=== PATIENT | male | born 1945 | race Caucasian/White ===

== ENCOUNTER → 2017-08-24 | Outpatient (CLI) | payer MEDICARE ==
[~2017-08-24] MED LIST: ASPI-496 PO; ATOR10TA9 PO; CHOL10003 PO; DAPA5TAB PO; LINA5TAB PO; LISI-467 PO; METF-365 PO; MULT-717 PO; OMEG1CAP24 PO
== END ==
LOC: CFH 09:31
PROVIDERS: ATTEND Nurse Practitioner
DX: Z12.2 Encounter for screening for malignant neoplasm of respiratory organs (principal); F17.200 Nicotine dependence, unspecified, uncomplicated; Z87.891 Personal history of nicotine dependence
CPT/HCPCS: G0297

== ENCOUNTER 2019-12-08 20:29 | Emergency (ER) | payer MEDICARE ==
[~2019-12-08] VITALS: Ht 175.3 cm; Wt 104.4 kg
--- NOTE | 2019-12-08 21:15 | NUR ---
SUPPLEMENTAL O2 PLACED VIA NASAL CANNULA @ 2L. O2 SAT 98%
--- NOTE | 2019-12-08 21:19 | NUR ---
74 YEAR OLD MALE TO ED FOR SOB X 1 MONTH. HE DENIES +COVID TEST, FEVER, CHILLS, BODY ACHES, OR SORE THROAT. HE ENDORSES PRODUCTIVE COUGH W CLEAR SPUTUM AND LEG SWELLING. EXP WHEEZES NOTED W AUSCULTATION.
--- NOTE | 2019-12-08 21:42 | NUR ---
[facility] [phone]
[2019-12-08 21:50] LABS: BASOPHILS # (AUTO) 0.06 x10^3/uL (0-0.1); BASOPHILS % (AUTO) 1 % (0-1); EOSINOPHILS # (AUTO) 0.18 x10^3/uL (0-0.4); EOSINOPHILS % (AUTO) 2 % (1-7); LYMPHOCYTES % (AUTO) 23 % (22-44); MD NO; MEAN CORPUSCULAR HEMOGLOBIN 33.2 pg (27.5-34.5); MEAN CORPUSCULAR HGB CONC 32.8 g/dL (33.2-36.2); MEAN PLATELET VOLUME 8.7 fL (7.4-10.4); MONOCYTES # (AUTO) 1.11 x10^3/uL (0.2-0.8); MONOCYTES % (AUTO) 11 % (2-9); NEUTROPHILS # (AUTO) 6.44 x10^3/uL (1.8-6.8); NEUTROPHILS % (AUTO) 64 % (42-75); PLATELET COUNT 225 x10^3/uL (130-400); RED BLOOD COUNT 5.08 x10^6/uL (4.38-5.82); RED CELL DISTRIBUTION WIDTH 13.3 % (9.4-14.8)
[2019-12-08 21:57] LABS: ALANINE AMINOTRANSFERASE 50 U/L (12-78); ALBUMIN 3.6 g/dL (3.4-5.0); ANION GAP 7 mmol/L (5-15); CALCIUM 9.1 mg/dL (8.5-10.1); CHLORIDE 107 mmol/L (98-107); CREATININE 0.91 mg/dL (0.7-1.3)
[2019-12-08 22:01] LABS: ALKALINE PHOSPHATASE 91 U/L (45-117); BILIRUBIN,TOTAL 0.6 mg/dL (0.2-1.0); TOTAL PROTEIN 7.5 g/dL (6.4-8.2); TROPONIN I < 0.015 ng/mL (0.000-0.045)
[2019-12-08] MEDS ORDERED: DOXYCYCLINE 100MG TABLET PO ONE (22:30)
[2019-12-08] MEDS ORDERED: DOXYCYCLINE 100MG TABLET ONE (22:36)
[2019-12-08 22:44] VITALS: BP 118/56
--- NOTE | 2019-12-08 22:54 | NUR ---
PATIENT IN NO APPARENT DISTRESS. RESTING COMFORTABLY. VSS.
== END 2019-12-08 23:34 | disposition home or self-care (01) ==
LOC: ED 23:20
DX: J18.9 Pneumonia, unspecified organism (principal); Z20.828 Contact with and (suspected) exposure to other viral communicable diseases; R60.9 Edema, unspecified; I10 Essential (primary) hypertension; E11.9 Type 2 diabetes mellitus without complications; E78.00 Pure hypercholesterolemia, unspecified; Z87.891 Personal history of nicotine dependence; Z85.46 Personal history of malignant neoplasm of prostate
CPT/HCPCS: 36415; 71045; 80053; 83880; 84484; 85025; 87635; 93005; 99285

== ENCOUNTER → 2020-10-24 | Outpatient (CLI) | payer MEDICARE ==
[~2020-10-24] MED LIST changes: +OMNIPAQUE 350 MG/ML, 150 ML BOTTLE ONE
== END | disposition home or self-care (01) ==
LOC: CFH 12:55
PROVIDERS: ATTEND Physician Assistant
DX: R31.0 Gross hematuria (principal); M51.37 Other intervertebral disc degeneration, lumbosacral region
CPT/HCPCS: 74178; Q9967

== ENCOUNTER → 2020-11-03 | Outpatient (CLI) | payer MEDICARE ==
[~2020-11-03] MED LIST changes: +IPRA4AER INH; +LATA7.5D EACHEYE; +LISI-170 PO; -OMNIPAQUE 350 MG/ML, 150 ML BOTTLE ONE; +Oxygen INH
[2020-11-03 10:14] LABS: BASOPHILS % (AUTO) 0 % (0-1); EOSINOPHILS % (AUTO) 2 % (1-7); LYMPHOCYTES % (AUTO) 28 % (22-44); MEAN CORPUSCULAR HEMOGLOBIN 34.5 pg (27.5-34.5); MEAN CORPUSCULAR HGB CONC 34.6 g/dL (33.2-36.2); MEAN PLATELET VOLUME 8.9 fL (7.4-10.4); MONOCYTES % (AUTO) 12 % (2-9); NEUTROPHILS % (AUTO) 58 % (42-75); PLATELET COUNT 240 x10^3/uL (130-400); RED BLOOD COUNT 4.92 x10^6/uL (4.38-5.82); RED CELL DISTRIBUTION WIDTH 12.7 % (9.4-14.8)
[2020-11-03 10:18] LABS: MICROSCOPIC NOT IND
[2020-11-03 10:24] LABS: ALANINE AMINOTRANSFERASE 48 U/L (12-78); ALBUMIN 3.6 g/dL (3.4-5.0); ANION GAP 4 mmol/L (5-15); CHLORIDE 105 mmol/L (98-107); CREATININE 0.91 mg/dL (0.7-1.3); INTERNATIONAL NORMALIZED RATIO 1.02 (0.93-1.1); PROTHROMBIN TIME 10.9 Seconds (9.6-11.5)
[2020-11-03 10:26] LABS: ALKALINE PHOSPHATASE 81 U/L (45-117); BILIRUBIN,TOTAL 0.5 mg/dL (0.2-1.0); TOTAL PROTEIN 7.5 g/dL (6.4-8.2)
== END | disposition home or self-care (01) ==
LOC: STAR 09:22
PROVIDERS: ATTEND Urology
DX: Z01.818 Encounter for other preprocedural examination (principal); N32.89 Other specified disorders of bladder; I44.0 Atrioventricular block, first degree
CPT/HCPCS: 36415; 80053; 81003; 85025; 85610; 85730; 87086; 93005

== ENCOUNTER 2020-11-25 05:42 | Day surgery (SDC) | payer MEDICARE ==
[~2020-11-25] VITALS: Ht 175.3 cm; Wt 102.0 kg
[2020-11-25 06:43] VITALS: BP 164/78
[2020-11-25] MEDS ORDERED: MIDAZOLAM 1 MG/ML, 2ML ONE (06:44)
[2020-11-25] MEDS ORDERED: GLYCOPYRROLATE 0.2MG/1ML, 5ML ONE (06:45)
[2020-11-25] MEDS ORDERED: ROCURONIUM 10MG/ML,5ML ONE (06:45)
[2020-11-25] MEDS ORDERED: PROPOFOL 10 MG/ML, 20ML ONE (06:45)
[2020-11-25] MEDS ORDERED: DEXAMETHASONE 4 MG/ML, 1ML ONE (06:45)
[2020-11-25] MEDS ORDERED: NEOSTIGMINE 1 MG/ML, 10ML ONE (06:45)
[2020-11-25] MEDS ORDERED: ONDANSETRON 2MG/ML, 2ML ONE (06:45)
[2020-11-25] MEDS ORDERED: FENTANYL PF 250 MCG/5ML ONE (06:45)
[2020-11-25] MEDS ORDERED: CEFAZOLIN 1,000 MG ONE (06:45)
[2020-11-25] MEDS ORDERED: PHENYLEPHRINE 10 MG/ML ONE (06:54)
[2020-11-25] MEDS ORDERED: morphine SULFATE 10 MG/ML, 1ML IVPush PRN (07:00)
[2020-11-25] MEDS ORDERED: LACTATED RINGERS 1,000 ML IV SCH (07:00)
[2020-11-25] MEDS ORDERED: HYDROmorphone 1 MG/ML, 1ML INJ IVPush PRN (07:00)
[2020-11-25] MEDS ORDERED: CHLORHEXIDINE 15 ML UDC PO ONE (07:00)
[2020-11-25] MEDS ORDERED: ALBUTEROL/IPRATROPIUM 2.5MG/0.5MG, 3 ML NPPB PRN (07:00)
[2020-11-25] MEDS ORDERED: MEPERIDINE/PF 25MG/0.5ML IVPush PRN (07:00)
[2020-11-25] MEDS ORDERED: OXYcodone 5 MG/5 ML ORAL.SOL UDC PO PRN (07:00)
[2020-11-25] MEDS ORDERED: ONDANSETRON 2MG/ML, 2ML IVPush PRN (07:00)
[2020-11-25] MEDS ORDERED: FENTANYL PF 100 MCG/2ML IV PRN (07:00)
[2020-11-25] MEDS ORDERED: LABETALOL 5MG/ML, 20ML IV PRN (07:00)
[2020-11-25] MEDS ORDERED: ACETAMINOPHEN 325 MG TABLET PO PRN (07:00)
[2020-11-25] MEDS ORDERED: hydrALAzine 20 MG/ML, 1ML IV PRN (07:00)
[2020-11-25] MEDS ORDERED: ALBUTEROL SULFATE 2.5 MG/3 ML NPPB PRN (07:00)
[2020-11-25] MEDS ORDERED: ALBUTEROL HFA 90 MCG/SPRAY ONE (07:23)
[2020-11-25] MEDS ORDERED: GEMCITABINE HCL 1,000 MG in SODIUM CHLORIDE 0.9% 23.7 ML IS ONE (08:00)
[2020-11-25] MEDS ORDERED: ALBUTEROL/IPRATROPIUM 2.5MG/0.5MG, 3 ML ONE (08:39)
[2020-11-25] MEDS ORDERED: LORazepam 2 MG/ML, 1ML ONE (09:02)
[2020-11-25] MEDS: LORazepam 2 MG/ML, 1ML IVPush PRN (09:15)
[2020-11-25] MEDS ORDERED: LABETALOL 5MG/ML, 20ML ONE (09:17)
[2020-11-25] MEDS ORDERED: ALBUTEROL SULFATE 2.5 MG/3 ML NEB ONE (11:00)
== END 2020-11-25 12:30 | disposition home or self-care (01) ==
LOC: OUT 05:42
PROVIDERS: ATTEND Urology
DX: C67.9 Malignant neoplasm of bladder, unspecified (principal); J44.9 Chronic obstructive pulmonary disease, unspecified; E11.9 Type 2 diabetes mellitus without complications; I10 Essential (primary) hypertension; Z20.822 Contact with and (suspected) exposure to COVID-19; Z79.84 Long term (current) use of oral hypoglycemic drugs; Z79.899 Other long term (current) drug therapy; Z99.81 Dependence on supplemental oxygen
CPT/HCPCS: 51720; 52234; 82962; 87635; 88305; 88307; J0690; J1100; J2060; J2250; J2370; J2405; J2704; J2710; J3010; J7120; J9201